=== PATIENT | female | born 1950 | race Caucasian/White ===

== ENCOUNTER 2016-11-21 17:43 | Emergency (ER) | payer OTHER, MEDICARE ==
[~2016-11-21] VITALS: Ht 167.6 cm; Wt 57.7 kg
[~2016-11-21 17:43] MED LIST: ALPRAZOLAM0.25 M1 PO; ATIVAN0.5 MG PO; CARDIZEM30 MG PO; FISH OIL300 MG PO; PROAIR HFA8.5 GM IH; ULTRAM50 MG PO; VITAMIN D; VITAMIN D-3 401 EACH PO; VITAMIN E
[2016-11-21] MEDS ORDERED: VALTREX50 MG/ML PO (20:38)
[2016-11-21 20:57] VITALS: BP 152/78
== END 2016-11-21 20:58 | disposition home or self-care (01) ==
LOC: EME 17:43
DX: B02.9 Zoster without complications (principal)
CPT/HCPCS: 99281; 99284